=== PATIENT | female | born 2000 | race African-American/Black ===

== ENCOUNTER 2022-01-28 10:45 | Emergency (ER) | payer OTHER ==
[2022-01-28 11:03] VITALS: TEMP 98.5; BMI 18.8
[2022-01-28] MEDS ORDERED: ACETAMINOPHEN 325 MG TABLET (FP) PO ONE (11:48)
[2022-01-28] MEDS ORDERED: ACETAMINOPHEN 325 MG TABLET (FP) ONE (11:53)
[2022-01-28 12:16] LABS: HEMOGLOBIN 10.4 GM/dL (10.7-15.3)
[2022-01-28 12:19] LABS: BASO % 0.5 % (0-2.0); EOS % 0.8 % (0-4.5); HEMATOCRIT 31.2 % (32.4-45.2); LYMPH % 28.9 % (8-40); MCH 27.2 pg (25.7-33.7); MCHC 33.2 g/dl (32.0-36.0); MEAN PLT VOLUME 9.5 fl (7.5-11.1); MONO % 6.8 % (3.8-10.2); PLATELET COUNT 200 10^3/uL (134-434); RDW 14.4 % (11.6-15.6); WHITE BLOOD COUNT 3.5 K/mm3 (4.0-10.0)
[2022-01-28 12:35] LABS: PH,URINE 6.5 (5.0-8.0); URINE APPEARANCE CLEAR; URINE BILIRUBIN NEGATIVE (NEGATIVE); URINE COLOR YELLOW; URINE GLUCOSE (UA) NEGATIVE (NEGATIVE); URINE KETONE NEGATIVE (NEGATIVE); URINE LEUK ESTERASE NEGATIVE (NEGATIVE); URINE NITRITE NEGATIVE (NEGATIVE); URINE PROTEIN NEGATIVE (NEGATIVE); URINE UROBILINOGEN 0.2 mg/dL (0.2-1.0)
[2022-01-28 12:44] LABS: CALCIUM 9.1 mg/dL (8.5-10.1)
[2022-01-28 12:45] LABS: BLOOD UREA NITROGEN 10.7 mg/dL (7-18)
[2022-01-28 12:48] LABS: CREATININE 0.5 mg/dL (0.55-1.3)
[2022-01-28 12:50] LABS: BILIRUBIN,TOTAL 0.8 mg/dL (0.2-1); TOT PROT 7.9 g/dl (6.4-8.2)
[2022-01-28 15:23] VITALS: BP 110/70; PULSE 80
== END 2022-01-28 15:22 | disposition home or self-care (01) ==
LOC: JER 10:45
DX: O26.891 Other specified pregnancy related conditions, first trimester (principal); R07.9 Chest pain, unspecified; Z3A.10 10 weeks gestation of pregnancy
CPT/HCPCS: 36415; 76801-TC; 80053; 81003; 84484; 84702; 85025; 86850; 86900; 86901; 87086; 93005; 93010; 99285-25

== ENCOUNTER 2022-03-12 13:12 | Emergency (ER) | payer OTHER ==
[2022-03-12 13:26] VITALS: PULSE 96; RESP 17; TEMP 99.1; BMI 20.9
[2022-03-12] MEDS ORDERED: SODIUM CHLORIDE 1,000 ML IV STA (14:10)
[2022-03-12] MEDS ORDERED: RHO(D) IMMUNE GLOBULIN 1,500 UNIT DISP.SYRIN IM ONE (14:11)
[2022-03-12 15:16] VITALS: BP 100/50
== END 2022-03-12 16:49 | disposition home or self-care (01) ==
LOC: JERFT 13:12
PROC: 3E0234Z Introduction of Serum, Toxoid and Vaccine into Muscle, Percutaneous Approach (ICD-10-PCS; principal; 2022-03-12)
PROC: 3E0337Z Introduction of Electrolytic and Water Balance Substance into Peripheral Vein, Percutaneous Approach (ICD-10-PCS; 2022-03-12)
DX: Z29.13 Encounter for prophylactic Rho(D) immune globulin (principal)
CPT/HCPCS: 86850; 86900; 86901; 86999; 99283-25; J1561

== ENCOUNTER 2022-08-17 11:45 | Inpatient (IN) | payer OTHER ==
[2022-08-17] MEDS ORDERED: BUTORPHANOL TARTRATE 1 MG/ML VIAL IVPB ONE (13:11)
[2022-08-17] MEDS ORDERED: PROMETHAZINE HCL 25 MG/1 ML VIAL IVPUSH ONE (13:11)
[2022-08-17] MEDS ORDERED: SODIUM PHOSPHATE/NA BIPHOS 133 ML ENEMA RC ONE (13:13)
[2022-08-17] MEDS ORDERED: DINOPROSTONE 10 MG VAGINAL SUPPOSITORY VG ONE (13:14)
[2022-08-17 13:20] VITALS: BMI 24.6
[2022-08-17 13:49] LABS: BASO % 0.2 % (0-2.0); EOS % 0.4 % (0-4.5); HEMATOCRIT 31.4 % (32.4-45.2); HEMOGLOBIN 10.1 GM/dL (10.7-15.3); LYMPH % 13.6 % (8-40); MCH 26.7 pg (25.7-33.7); MCHC 32.1 g/dl (32.0-36.0); MEAN CELL VOLUME 83.3 fl (80-96); MEAN PLT VOLUME 8.9 fl (7.5-11.1); MONO % 5.1 % (3.8-10.2); NEUT % 80.7 % (42.8-82.8); PLATELET COUNT 188 10^3/uL (134-434); RBC 3.77 M/mm3 (3.60-5.2); WHITE BLOOD COUNT 7.5 K/mm3 (4.0-10.0)
[2022-08-17 13:58] LABS: PROTHROMBIN TIME (PATIENT) 11.5 SEC (9.7-13.0)
[2022-08-17 14:01] LABS: ACTIVATED PTT 33.1 SECONDS (25.2-36.5)
[2022-08-17] MEDS: DEXTROSE 5%-LACTATED RINGERS 1,000 ML IV SCH (14:05)
[2022-08-17 14:12] LABS: CALCIUM 8.5 mg/dL (8.5-10.1)
[2022-08-17 14:16] LABS: CREATININE 0.6 mg/dL (0.55-1.3)
[2022-08-17] MEDS ORDERED: AMPICILLIN SODIUM 2 GM VIAL ONE (14:39)
[2022-08-17] MEDS ORDERED: AMPICILLIN - 2 GM in SODIUM CHLORIDE 100 ML IVPB ONE (15:00)
[2022-08-17] MEDS ORDERED: AMPICILLIN SODIUM 1 GM VIAL ONE ×2 (18:13→22:51)
[2022-08-17 18:36] LABS: COCAINE, UR NEGATIVE (NEGATIVE); METHADONE, UR NEGATIVE (NEGATIVE); PHENCYCLIDINE,URINE NEGATIVE (NEGATIVE); URINE BENZODIAZEPINES NEGATIVE (NEGATIVE)
[2022-08-17 18:37] LABS: OPIATES, URI NEGATIVE (NEGATIVE); URINE BARBITURATES NEGATIVE (NEGATIVE)
[2022-08-17 18:54] LABS: URINE AMPHETAMINES NEGATIVE (NEGATIVE)
[2022-08-17] MEDS: AMPICILLIN - 1 GM in SODIUM CHLORIDE 100 ML IVPB SCH ×2 (18:54→23:00)
[2022-08-18] MEDS ORDERED: AMPICILLIN SODIUM 1 GM VIAL ONE ×4 (03:08→18:38)
[2022-08-18] MEDS: AMPICILLIN - 1 GM in SODIUM CHLORIDE 100 ML IVPB SCH ×4 (03:13→18:46)
[2022-08-18] MEDS ORDERED: BUTORPHANOL TARTRATE 1 MG/ML VIAL ONE (05:15)
[2022-08-18] MEDS ORDERED: PROMETHAZINE HCL 25 MG/1 ML VIAL ONE (05:15)
[2022-08-18] MEDS ORDERED: OXYTOCIN 30 UNITS in 0.9% NS 30 UNIT/500 ML INFUS.BAG IVPB ONE (07:20)
[2022-08-18] MEDS ORDERED: OXYTOCIN 30 UNITS in 0.9% NS 30 UNIT/500 ML INFUS.BAG IVPB SCH (07:20)
[2022-08-18] MEDS: DEXTROSE 5%-LACTATED RINGERS 1,000 ML IV SCH (08:30)
[2022-08-18] MEDS ORDERED: BUPIVACAINE HCL/PF 0.25% (2.5MG/ML) 10 ML VIAL ONE (12:46)
[2022-08-18] MEDS ORDERED: FENTANYL/BUPIVACAINE/NS/PF - PCEA - 50 ML DISP.SYRIN EP ONE (13:31)
[2022-08-18] MEDS ORDERED: NALOXONE HCL 0.4 MG/ML VIAL IVPUSH PRN (13:59)
[2022-08-18] MEDS ORDERED: FENTANYL/BUPIVACAINE/NS/PF - PCEA - 50 ML DISP.SYRIN EP SCH (14:00)
[2022-08-18] MEDS ORDERED: ELECTROLYTE-148 SOLN 1,000 ML IV SCH (17:45)
[2022-08-18 19:46] LABS: CORD BASE EXCESS -1.5 mmol/L (0-2); CORD HCO3 23.1 mmHg (20-29); CORD PCO2 39.1 mmHg (30-78); CORD pH 7.39 (7.14-7.44)
[2022-08-18 19:49] LABS: CORD BASE EXCESS -6.5 mmol/L (0-2); CORD HCO3 21.7 mmHg (20-29); CORD PCO2 52.5 mmHg (30-78); CORD pH 7.234 (7.14-7.44)
[2022-08-18] MEDS ORDERED: BENZOCAINE 28 GM HEMORRHOIDAL OINTMENT TP PRN (20:18)
[2022-08-18] MEDS ORDERED: METHYLERGONOVINE MALEATE 0.2 MG/1 ML AMP IM PRN (20:18)
[2022-08-18] MEDS ORDERED: WITCH HAZEL 50% (TUCKS) 40 PAD/JAR PAD TP PRN (20:18)
[2022-08-18] MEDS ORDERED: ACETAMINOPHEN 325 MG TABLET (FP) PO PRN (20:18)
[2022-08-18] MEDS ORDERED: oxyCODONE HCL 5 MG TABLET PO PRN (20:18)
[2022-08-18] MEDS ORDERED: BISACODYL 10 MG SUPP.RECT RC PRN (20:18)
[2022-08-18] MEDS ORDERED: BENZOCAINE 20% 57 GM BOTTLE TP PRN (20:18)
[2022-08-18] MEDS ORDERED: OXYTOCIN 20 UNITS in 0.9% NS 20 UNIT/1,000 ML INFUS.BAG IV SCH (20:30)
[2022-08-18 20:34] VITALS: RESP 18
[2022-08-18] MEDS: IBUPROFEN 600 MG TABLET (FP) PO PRN (22:11)
[2022-08-19] MEDS: DEXTROSE 5%-LACTATED RINGERS 1,000 ML IV SCH (00:21)
[2022-08-19 09:12] LABS: HEMATOCRIT 32.5 % (32.4-45.2); HEMOGLOBIN 10.4 GM/dL (10.7-15.3); MCHC 32.1 g/dl (32.0-36.0); MEAN PLT VOLUME 8.9 fl (7.5-11.1); PLATELET COUNT 200 10^3/uL (134-434); RBC 3.87 M/mm3 (3.60-5.2); WHITE BLOOD COUNT 10.6 K/mm3 (4.0-10.0)
[2022-08-19] MEDS: IBUPROFEN 600 MG TABLET (FP) PO PRN (09:20)
[2022-08-19 09:48] LABS: ANISOCYTOSIS 0; MACROCYTOSIS 0
[2022-08-19] MEDS ORDERED: SENNOSIDES/DOCUSATE COMBO (SENNA PLUS) TABLET (UD) PO PRN (22:00)
[2022-08-20 11:21] VITALS: BP 98/65; PULSE 90; TEMP 98.1
[2022-08-24 12:41] LABS: POC NITRAZINE POS
== END 2022-08-20 13:35 | disposition home or self-care (01) | DRG 560 ==
LOC: JDEL 11:45 → JLDR 12:25 → J3W 08-18 21:25
PROVIDERS: ADMIT Obstetrics & Gynecology; ATTEND Obstetrics & Gynecology
PROC: 3E033VJ Introduction of Other Hormone into Peripheral Vein, Percutaneous Approach (ICD-10-PCS; 2022-08-17)
PROC: 10E0XZZ Delivery of Products of Conception, External Approach (ICD-10-PCS; principal; 2022-08-18)
PROC: 0W8NXZZ Division of Female Perineum, External Approach (ICD-10-PCS; 2022-08-18)
PROC: 3E0P7VZ Introduction of Hormone into Female Reproductive, Via Natural or Artificial Opening (ICD-10-PCS; 2022-08-18)
DX: O41.03X0 Oligohydramnios, third trimester, not applicable or unspecified (principal); O42.12 Full-term premature rupture of membranes, onset of labor more than 24 hours following rupture; O69.81X0 Labor and delivery complicated by cord around neck, without compression, not applicable or unspecified; O99.02 Anemia complicating childbirth; D50.9 Iron deficiency anemia, unspecified; Z3A.39 39 weeks gestation of pregnancy; Z37.0 Single live birth
CPT/HCPCS: 36415; 36600; 59409; 80048; 80307; 82803; 83986-QW; 85025; 85610; 85730; 86780; 86850; 86870; 86900; 86901; 86902; C9803-CS; U0003; U0005

== ENCOUNTER 2022-08-23 18:30 | Emergency (ER) | payer OTHER ==
[2022-08-23 18:56] VITALS: BP 98/61; PULSE 98; RESP 20; TEMP 98.5; BMI 24.7
[2022-08-23] MEDS ORDERED: KETOROLAC TROMETHAMINE 30 MG/1 ML VIAL IM ONE (23:10)
[2022-08-23] MEDS ORDERED: KETOROLAC TROMETHAMINE 30 MG/1 ML VIAL ONE (23:24)
[2022-08-23] MEDS ORDERED: BACITRACIN 15 GM TUBE TOPICAL OINTMENT ONE (23:42)
[2022-08-23] MEDS ORDERED: BACITRACIN/POLYMYXIN B SULFATE 15 GM TUBE TP SCH (23:45)
== END 2022-08-24 00:12 | disposition home or self-care (01) ==
LOC: JER 18:30
PROC: 3E0233Z Introduction of Anti-inflammatory into Muscle, Percutaneous Approach (ICD-10-PCS; principal; 2022-08-23)
DX: O90.1 Disruption of perineal obstetric wound (principal)
CPT/HCPCS: 99284-25